=== PATIENT | male | born 1985 | race Caucasian/White ===

== ENCOUNTER 2018-10-02 12:00 | Emergency (ER) | payer OTHER, MEDICAID ==
[2018-10-02] MEDS ORDERED: NORMAL SALINE 1000 ML 1,000 ML IV ONE (12:22)
--- NOTE | 2018-10-02 12:24 | ER Document Report ---
ED Medical Screen (RME) - General Chief Complaint: ETOH Abuse Stated Complaint: DETOX Time Seen by Provider: 10/02/18 12:22 Mode of Arrival: Ambulatory Information source: Patient Notes: Patient presents requesting detox from alcohol use. Patient states he has been on a 3-day smith. Patient states he just drink 30 ounces of alcohol 10 minutes prior to arrival. Patient denies any suicidal or homicidal ideation. Patient denies any use of drugs. I have greeted and performed a rapid initial assessment of this patient. A comprehensive ED assessment and evaluation of the patient, analysis of test results and completion of the medical decision making process will be conducted by additional ED providers. TRAVEL OUTSIDE OF THE [place] IN LAST 30 DAYS: No - Related Data Allergies/Adverse Reactions: No Known Allergies Allergy (Verified 10/02/18 12:02) Physical Exam - Vital signs Vitals: Temp Pulse Resp BP Pulse Ox 98.0 F 124 H 16 137/101 H 94 10/02/18 12:09 10/02/18 12:09 10/02/18 12:10/02/18 12:09 10/02/18 12:09 - General General appearance: Appears well, Alert Notes: Smells of alcohol with slurred speech, no homicidal or suicidal ideation Course - Vital Signs Vital signs: Temp Pulse Resp BP Pulse Ox 98.0 F 124 H 16 137/101 H 94 10/02/18 12:09 10/02/18 12:09 10/02/18 12:10/02/18 12:10/02/18 12:09
[2018-10-02 12:55] LABS: ABSOLUTE BASOPHILS # (AUTO) 0.1 10^3/uL (0.0-0.2); ABSOLUTE EOSINOPHILS # (AUTO) 0.1 10^3/uL (0.0-0.6); ABSOLUTE LYMPHOCYTES (AUTO) 2.3 10^3/uL (0.5-4.7); ABSOLUTE MONOCYTES (AUTO) 0.6 10^3/uL (0.1-1.4); ABSOLUTE NEUT (AUTO) 2.5 10^3/uL (1.7-8.2); BASOPHILS % (AUTO) 1.2 % (0-2); EOSINOPHILS % (AUTO) 1.4 % (0-6); HEMATOCRIT 49.3 % (37.9-51.0); HEMOGLOBIN 17.3 g/dL (13.5-17.0); LYMPHOCYTES % (AUTO) 40.9 % (13-45); MEAN CORPUSCULAR HEMOGLOBIN 33.8 pg (27.0-33.4); MEAN CORPUSCULAR VOLUME 97 fl (80-97); MONOCYTES % (AUTO) 11.5 % (3-13); PLATELET COUNT 293 10^3/uL (150-450); RED BLOOD COUNT 5.11 10^6/uL (4.35-5.55); RED CELL DISTRIBUTION WIDTH 12.9 % (11.5-14.0); TOTAL CELLS COUNTED % (AUTO) 100 %; WHITE BLOOD COUNT 5.6 10^3/uL (4.0-10.5)
[2018-10-02 13:18] LABS: ALANINE AMINOTRANSFERASE 51 U/L (21-72); ALBUMIN 4.9 g/dL (3.5-5.0); ALKALINE PHOSPHATASE 106 U/L (38-126); ANION GAP 14 (5-19); ASPARTATE AMINO TRANSFERASE 80 U/L (17-59); BILIRUBIN,DIRECT 0.4 mg/dL (0.0-0.4); BILIRUBIN,TOTAL 0.6 mg/dL (0.2-1.3); BLOOD UREA NITROGEN 11 mg/dL (7-20); CALCIUM 9.3 mg/dL (8.4-10.2); CARBON DIOXIDE 29 mmol/L (22-30); CHLORIDE 100 mmol/L (98-107); GLUCOSE 109 mg/dL (75-110); POTASSIUM 4.7 mmol/L (3.6-5.0); SODIUM 142.7 mmol/L (137-145); TOTAL PROTEIN 8.8 g/dL (6.3-8.2)
[2018-10-02 13:22] LABS: URINE AMPHETAMINES SCREEN NEGATIVE; URINE BARBITURATES SCREEN NEGATIVE; URINE BENZODIAZEPINES SCREEN NEGATIVE; URINE COCAINE SCREEN NEGATIVE; URINE MARIJUANA (THC) SCREEN NEGATIVE; URINE METHADONE SCREEN NEGATIVE; URINE PHENCYCLIDINE SCREEN NEGATIVE
[2018-10-02 13:28] LABS: COLOR,URINE YELLOW
[2018-10-02 13:29] LABS: APPEARANCE,URINE CLEAR; BILIRUBIN,URINE NEGATIVE (NEGATIVE); GLUCOSE, URINE NEGATIVE (NEGATIVE); KETONES,URINE NEGATIVE (NEGATIVE); LEUKOCYTE ESTERASE,URINE NEGATIVE (NEGATIVE); NITRITE,URINE NEGATIVE (NEGATIVE); PROTEIN,URINE 100 mg/dL (NEGATIVE); URINE SPECIFIC GRAVITY 1.017; UROBILINOGEN,URINE NEGATIVE mg/dL (<2.0)
--- NOTE | 2018-10-02 13:36 | ER Document Report ---
ED General - General Chief Complaint: ETOH Abuse Stated Complaint: DETOX Time Seen by Provider: 10/02/18 12:22 Mode of Arrival: Ambulatory TRAVEL OUTSIDE OF THE [place] IN LAST 30 DAYS: No - HPI Notes: Patient is a 33-year-old male that presents to the emergency department for chief complaint of wanting alcohol detox. Patient states that he has had 3/5 of alcohol in the last 3 days. He reports that he usually drinks less than that but does drink daily. He states he came to the emergency room hoping to get alcohol detox. Patient has had detox in the past. He has no history of alcohol withdrawal seizures or delirium tremens. He has no current complaints other than wanting detox. He states that his last drink of alcohol was about 40 minutes ago. Patient denies any chest pain, shortness of breath, palpitations, nausea or vomiting. He denies any suicidal or homicidal ideations. Past Medical History: Alcoholism, PTSD, depression Past Surgical History: Negative Social History: Alcoholism. Denies tobacco or drug use Family History: Reviewed and noncontributory for presenting illness Allergies: Reviewed, see documented allergy list. REVIEW OF SYSTEMS: CONSTITUTIONAL : No fever No chills No diaphoresis No recent illness EENT: No vision changes No congestion No sore throat CARDIOVASCULAR: No chest pain No palpitations RESPIRATORY: No shortness of breath No cough No difficulty breathing GASTROINTESTINAL: No abdominal pain No nausea No vomiting No diarrhea GENITOURINARY: No dysuria No hematuria No difficulty urinating MUSCULOSKELETAL: No back pain No leg pain No arm pain SKIN: No rashes No lesions LYMPHATIC: No swollen, enlarged glands. NEUROLOGICAL: No lightheadedness No headache No weakness No paresthesias PSYCHIATRIC: No anxiety No depression PHYSICAL EXAMINATION: Vital signs reviewed, nursing noted reviewed. GENERAL: Appears mildly intoxicated, well-nourished and in no acute distress. HEAD: Atraumatic, normocephalic. EYES: Eyes appear normal, extraocular movements intact, sclera anicteric, conjunctiva are normal. ENT: nares patent, oropharynx clear without exudates. Moist mucous membranes. NECK: Normal range of motion, supple without lymphadenopathy LUNGS: Breath sounds clear to auscultation bilaterally and equal. No wheezes rales or rhonchi. HEART: Tachycardic rate and regular and rhythm without murmurs ABDOMEN: Soft, nontender, normoactive bowel sounds. No rebound, guarding, or rigidity. No masses appreciated. EXTREMITIES: Nontender, good range of motion, no pitting or edema. NEUROLOGICAL: No focal neurological deficits. Moves all extremities spontaneously Motor and sensory grossly intact on exam. PSYCH: Normal mood, normal affect. SKIN: Warm, Dry, normal turgor, no rashes or lesions noted on exposed skin - Related Data Allergies/Adverse Reactions: No Known Allergies Allergy (Verified 10/02/18 12:02) Past Medical History - General Information source: Patient - Social History Smoking Status: Current Every Day Smoker Frequency of alcohol use: Heavy Drug Abuse: None Family History: Reviewed & Not Pertinent Patient has suicidal ideation: No Patient has homicidal ideation: No Renal/ Medical History: Denies: Hx Peritoneal Dialysis Past Surgical History: Reports: Hx Abdominal Surgery - hernia x2 Physical Exam - Vital signs Vitals: Temp Pulse Resp BP Pulse Ox 98.0 F 124 H 16 137/101 H 94 10/02/18 12:09 10/02/18 12:09 10/02/18 12:09 10/02/18 12:10/02/18 12:09 Course - Re-evaluation Re-evalutation: 10/02/18 13:34 Vitals reviewed. Nursing notes reviewed. Patient is mildly intoxicated but is able to speak in full sentences without slurring and can ambulate without difficulty. His last alcoholic beverage was 40 minutes prior to arrival. Patient is otherwise asymptomatic. He was tachycardic in triage and ordered 1 L of IV fluids. He is not having any active hallucinations and is not in alcohol withdrawal. Patient was given the phone number to mobile crisis and will call them upon being discharged from the ED. He will return to the emergency room for new or worsening symptoms. He is in agreement with this plan of care and stable for discharge With his friend who is currently sober at bedside. Laboratory 10/02/18 10/02/18 10/02/18 12:30 12:30 12:38 WBC 5.6 RBC 5.11 Hgb 17.3 H Hct 49.3 MCV 97 MCH 33.8 H MCHC 35.0 RDW 12.9 Plt Count 293 Seg Neutrophils % 45.0 Lymphocytes % 40.9 Monocytes % 11.5 Eosinophils % 1.4 Basophils % 1.2 Absolute Neutrophils 2.5 Absolute Lymphocytes 2.3 Absolute Monocytes 0.6 Absolute Eosinophils 0.1 Absolute Basophils 0.1 Sodium Potassium Chloride Carbon Dioxide Anion Gap BUN Creatinine Est GFR ( Amer) Est GFR (Non-Af Amer) Glucose Calcium Total Bilirubin Direct Bilirubin Neonat Total Bilirubin Neonat Direct Bilirubin Neonat Indirect Bili AST ALT Alkaline Phosphatase Total Protein Albumin Urine Color YELLOW Urine Appearance CLEAR Urine pH 6.0 Ur Specific [place] 1.017 Urine Protein 100 H Urine Glucose (UA) NEGATIVE Urine Ketones NEGATIVE Urine Blood NEGATIVE Urine Nitrite NEGATIVE Urine Bilirubin NEGATIVE Urine Urobilinogen NEGATIVE Ur Leukocyte Esterase NEGATIVE Urine WBC (Auto) 1 Urine RBC (Auto) 1 U Hyaline Cast (Auto) 9 Urine Bacteria (Auto) TRACE Squamous Epi Cells Auto <1 Urine Mucus (Auto) OCC Urine Ascorbic Acid NEGATIVE Urine Opiates Screen NEGATIVE Urine Methadone Screen NEGATIVE Ur Barbiturates Screen NEGATIVE Ur Phencyclidine Scrn NEGATIVE Ur Amphetamines Screen NEGATIVE U Benzodiazepines Scrn NEGATIVE Urine Cocaine Screen NEGATIVE U Marijuana (THC) Screen NEGATIVE 10/02/18 12:38 WBC RBC Hgb Hct MCV MCH MCHC RDW Plt Count Seg Neutrophils % Lymphocytes % Monocytes % Eosinophils % Basophils % Absolute Neutrophils Absolute Lymphocytes Absolute Monocytes Absolute Eosinophils Absolute Basophils Sodium 142.7 Potassium 4.7 Chloride 100 Carbon Dioxide 29 Anion Gap 14 BUN 11 Creatinine 0.88 Est GFR ( Amer) > 60 Est GFR (Non-Af Amer) > 60 Glucose 109 Calcium 9.3 Total Bilirubin 0.6 Direct Bilirubin 0.4 Neonat Total Bilirubin Not Reportable Neonat Direct Bilirubin Not Reportable Neonat Indirect Bili Not Reportable AST 80 H ALT 51 Alkaline Phosphatase 106 Total Protein 8.8 H Albumin 4.9 Urine Color Urine Appearance Urine pH Ur Specific [place] Urine Protein Urine Glucose (UA) Urine Ketones Urine Blood Urine Nitrite Urine Bilirubin Urine Urobilinogen Ur Leukocyte Esterase Urine WBC (Auto) Urine RBC (Auto) U Hyaline Cast (Auto) Urine Bacteria (Auto) Squamous Epi Cells Auto Urine Mucus (Auto) Urine Ascorbic Acid Urine Opiates Screen Urine Methadone Screen Ur Barbiturates Screen Ur Phencyclidine Scrn Ur Amphetamines Screen U Benzodiazepines Scrn Urine Cocaine Screen U Marijuana (THC) Screen - Vital Signs Vital signs: Temp Pulse Resp BP Pulse Ox 98.0 F 124 H 16 137/101 H 94 10/02/18 12:09 10/02/18 12:09 10/02/18 12:09 10/02/18 12:10/02/18 12:09 - Laboratory Result Diagrams: 10/02/18 12:38 10/02/18 12:38 Laboratory results interpreted by me: 10/02/18 10/02/18 10/02/18 12:30 12:38 12:38 Hgb 17.3 H MCH 33.8 H AST 80 H Total Protein 8.8 H Urine Protein 100 H - EKG Interpretation by Me Additional EKG results interpreted by me: 10/02/18 13:35 Interpreted by myself [id number] tachycardia, rate 107, normal axis, no ectopy, no STEMI Discharge - Discharge Clinical Impression: Alcohol abuse Condition: Stable Disposition: HOME, SELF-CARE Instructions: Chronic Alcoholism ([facility]), Acute Alcohol Intoxication ([facility]) Additional Instructions: Please return to the emergency department if you have any worsening, or concern of your symptoms. Please return to the emergency department if you develop chest pain, difficulty breathing, severe abdominal pain, or ongoing vomiting. Please follow-up with your primary care physician in 2-3 days and any other recommended physicians. If prescribed, take all medications as directed. If you have any questions or concerns do not hesitate to return the emergency department for evaluation. Contact mobile crisis now to help you arrange alcohol detox
[2018-10-02 13:49] VITALS: BP 132/97
--- NOTE | 2018-10-02 21:24 | EKG REPORT ---
SEVERITY:- OTHERWISE NORMAL ECG - SINUS TACHYCARDIA : Confirmed by: Chanelle Jones MD 02-Oct-2018 21:24:02
== END 2018-10-02 13:49 | disposition home or self-care (01) ==
LOC: ER 12:00
DX: F10.10 Alcohol abuse, uncomplicated (principal); F17.200 Nicotine dependence, unspecified, uncomplicated
CPT/HCPCS: 93005; 99285; 96360; 36415; 85025; 80053; 81001; 80307; 93010; J7030

== ENCOUNTER 2018-10-02 17:22 | Emergency (ER) | payer OTHER, MEDICAID ==
--- NOTE | 2018-10-02 17:45 | ER Document Report ---
ED Medical Screen (RME) - General Chief Complaint: Suicidal Ideation Stated Complaint: SI Time Seen by Provider: 10/02/18 17:43 Primary Care Provider: KARISSA CAPUTO DO [Primary Care Provider] - Follow up as needed Information source: Patient Notes: Patient was seen earlier today with a request for detox from alcohol. Patient had drank just 10 minutes prior to his earlier ER visit. Patient states that since he was not able to get detoxed he went home and drink additional alcohol. Patient presents now with a complaint of suicidal ideation. Patient denies any homicidal ideation. I have greeted and performed a rapid initial assessment of this patient. A comprehensive ED assessment and evaluation of the patient, analysis of test results and completion of the medical decision making process will be conducted by additional ED providers. TRAVEL OUTSIDE OF THE [place] IN LAST 30 DAYS: No - Related Data Allergies/Adverse Reactions: No Known Allergies Allergy (Verified 10/02/18 17:28) Past Medical History Renal/ Medical History: Denies: Hx Peritoneal Dialysis Past Surgical History: Reports: Hx Abdominal Surgery - hernia x2 Physical Exam - Vital signs Vitals: Temp Pulse Resp BP Pulse Ox 97.9 F 104 H 16 130/104 H 97 10/02/18 17:38 10/02/18 17:38 10/02/18 17:38 10/02/18 17:38 10/02/18 17:38 - General General appearance: Appears well, Alert Notes: Slightly slurred speech - Psychological Associated symptoms: Normal affect, Normal mood. No: Uncooperative Course - Vital Signs Vital signs: Temp Pulse Resp BP Pulse Ox 97.9 F 104 H 16 130/104 H 97 10/02/18 17:38 10/02/18 17:38 10/02/18 17:38 10/02/18 17:38 10/02/18 17:38 Doctor's Discharge - Discharge Referrals: KARISSA CAPUTO DO [Primary Care Provider] - Follow up as needed
[2018-10-02 18:58] LABS: APPEARANCE,URINE CLEAR; BILIRUBIN,URINE NEGATIVE (NEGATIVE); COLOR,URINE STRAW; GLUCOSE, URINE NEGATIVE (NEGATIVE); KETONES,URINE NEGATIVE (NEGATIVE); LEUKOCYTE ESTERASE,URINE NEGATIVE (NEGATIVE); NITRITE,URINE NEGATIVE (NEGATIVE); PROTEIN,URINE NEGATIVE (NEGATIVE); URINE SPECIFIC GRAVITY 1.005; UROBILINOGEN,URINE NEGATIVE mg/dL (<2.0)
[2018-10-02 19:15] LABS: URINE AMPHETAMINES SCREEN NEGATIVE; URINE BARBITURATES SCREEN NEGATIVE; URINE BENZODIAZEPINES SCREEN NEGATIVE; URINE COCAINE SCREEN NEGATIVE; URINE MARIJUANA (THC) SCREEN NEGATIVE; URINE METHADONE SCREEN NEGATIVE; URINE PHENCYCLIDINE SCREEN NEGATIVE
[2018-10-02 19:35] LABS: HEMATOCRIT 44.6 % (37.9-51.0); HEMOGLOBIN 15.5 g/dL (13.5-17.0); MEAN CORPUSCULAR HEMOGLOBIN 33.5 pg (27.0-33.4); MEAN CORPUSCULAR HGB CONC 34.7 g/dL (32.0-36.0); MEAN CORPUSCULAR VOLUME 97 fl (80-97); PLATELET COUNT 244 10^3/uL (150-450); RED BLOOD COUNT 4.63 10^6/uL (4.35-5.55); RED CELL DISTRIBUTION WIDTH 12.7 % (11.5-14.0); WHITE BLOOD COUNT 6.3 10^3/uL (4.0-10.5)
[2018-10-02 19:49] LABS: ALANINE AMINOTRANSFERASE 54 U/L (21-72); ALBUMIN 4.3 g/dL (3.5-5.0); ALKALINE PHOSPHATASE 100 U/L (38-126); ANION GAP 12 (5-19); ASPARTATE AMINO TRANSFERASE 64 U/L (17-59); BILIRUBIN,DIRECT 0.3 mg/dL (0.0-0.4); BILIRUBIN,TOTAL 0.3 mg/dL (0.2-1.3); BLOOD UREA NITROGEN 8 mg/dL (7-20); CALCIUM 8.7 mg/dL (8.4-10.2); CARBON DIOXIDE 27 mmol/L (22-30); CHLORIDE 102 mmol/L (98-107); GLUCOSE 89 mg/dL (75-110); SODIUM 141.2 mmol/L (137-145); TOTAL PROTEIN 7.6 g/dL (6.3-8.2)
[2018-10-02 19:58] LABS: ACETAMINOPHEN < 10 ug/mL (10-30); SALICYLATE < 1.0 mg/dL (2.0-20.0)
[2018-10-02 19:59] LABS: ALCOHOL 354 mg/dL (NONE DETECTED)
[2018-10-02 20:00] LABS: ABSOLUTE LYMPHOCYTES# (MANUAL) 2.9 10^3/uL (0.5-4.7); ABSOLUTE MONOCYTES # (MANUAL) 0.3 10^3/uL (0.1-1.4); BASOPHILS % (MANUAL) 1 % (0-2); EOSINOPHILS % (MANUAL) 0 % (0-6); LYMPHOCYTES % (MANUAL) 46 % (13-45); MONOCYTES % (MANUAL) 5 % (3-13); RBC MORPHOLOGY COMMENT NORMO-CYTIC/CHROMIC; SEGMENTED NEUTROPHILS % (MAN) 48 % (42-78); TOTAL CELLS COUNTED 100
[2018-10-02 20:01] LABS: PLATELET COMMENT ADEQUATE
--- NOTE | 2018-10-02 22:28 | ER Document Report ---
Entered by DEMETRIUS SHORT SCRIBE 10/02/18 1858 Acting as scribe for:VANNESA MEIER MD ED General - General TRAVEL OUTSIDE OF THE U.S. IN LAST 30 DAYS: No <VANNESA MEIER - Last Filed: 10/03/18 04:05> <GARY RICO - Last Filed: 10/03/18 09:31> <MEEK LEE - Last Filed: 10/03/18 09:52> - General Chief Complaint: Suicidal Ideation Stated Complaint: SI Time Seen by Provider: 10/02/18 17:43 Primary Care Provider: [facility] [Provider Group] - Follow up as needed [facility] [Outside] - 10/03/18 [facility] [Outside] - Follow up as needed KARISSA CAPUTO DO [Primary Care Provider] - Follow up as needed Notes: Patient is a 33-year-old male presenting to the emergency department with suicid al ideations. Patient states that he had suicidal thoughts earlier today. Patient states that he has had these ideations for some time now, since 2011. Patient states that he almost some hung himself in 2016. Patient states that he lives with a roommate that is an old friend. Patient states that he just got a new job at the [employer], that he used to work at [employer] in [place]. Patient states that he went to see someone for his suicidal ideations and they said they would get back with him. (DEMETRIUS SHORT) Patient is a 33-year-old male presenting to the emergency department with suicidal ideations. Patient states that he had suicidal thoughts earlier today. Patient states that he has had these ideations for some time now, since 2011. Patient states that he almost some hung himself in 2016. Patient states that he lives with a roommate that is an old friend. Patient states that he just got a new job at the [employer], that he used to work at [employer] in [place]. The patient was seen here earlier today requesting detox. He was referred to mobile crisis. He reports he did call mobile crisis, and they told him the nearest detox facility was 2 and half hours away. He reports that they told him that they would call him back when they could make arrangements for him to get into a detox facility. He reports that they did have his phone number. After leaving the emergency room early this afternoon, he continued to drink alcohol. He states his last drink was about 2 hours prior to arrival this evening. (VANNESA EMIER) - Related Data Allergies/Adverse Reactions: No Known Allergies Allergy (Verified 10/02/18 17:28) Past Medical History - General Information source: Patient - Social History Smoking Status: Current Every Day Smoker Frequency of alcohol use: Heavy Drug Abuse: None Family History: Reviewed & Not Pertinent Patient has suicidal ideation: Yes Patient has homicidal ideation: No Renal/ Medical History: Denies: Hx Peritoneal Dialysis Past Surgical History: Reports: Hx Abdominal Surgery - hernia x2 <VANNESA MEIER - Last Filed: 10/03/18 04:05> Review of Systems - Review of Systems Constitutional: No symptoms reported EENT: No symptoms reported Cardiovascular: No symptoms reported Respiratory: No symptoms reported Gastrointestinal: No symptoms reported Genitourinary: No symptoms reported Male Genitourinary: No symptoms reported Musculoskeletal: No symptoms reported Skin: No symptoms reported Hematologic/Lymphatic: No symptoms reported Neurological/Psychological: See HPI, Depression, Suicidal ideation -: Yes All other systems reviewed and negative <VANNESA MEIER - Last Filed: 10/03/18 04:05> Physical Exam <VANNESA MEIER - Last Filed: 10/03/18 04:05> - Vital signs Vitals: Temp Pulse Resp BP Pulse Ox 97.9 F 104 H 16 130/104 H 97 10/02/18 17:38 10/02/18 17:38 10/02/18 17:38 10/02/18 17:38 10/02/18 17:38 - Notes Notes: Physical Exam: General: Alert, appears well, depressed, alcohol odor on the breath. HEENT: Left aspect of the upper lip, has a minor laceration, with scabbing occurring. Throat Erithmatic. Mouth dry. PERRL. Extraocular movements intact. Oropharynx clear. Neck: Supple. Non-tender. Respiratory: No respiratory distress. Clear and equal breath sounds bilaterally. Cardiovascular: Left anterior chest wall tenderness to palpation Regular rate and rhythm. Abdominal: Normal Inspection. Non-tender. No distension. Normal Bowel Sounds. Back: Non-tender. No deformity or step off. Extremities: Moves all four extremities. Upper extremities: Normal inspection. Normal ROM. Lower extremities: Normal inspection. No edema. Normal ROM. Neurological: Normal cognition. AAOx4. Normal speech. Psychological: Normal affect. Normal Mood. Skin: Warm. Dry. Normal color. She filled the prescription but if she would like the left aspect of the upper lip (DEMETRIUS SHORT) Physical Exam: General: Alert, appears well, depressed, alcohol odor on the breath. HEENT: Left aspect of the upper lip, has a minor laceration, with scabbing occurring. Throat Erithmatic. Mouth dry. PERRL. Extraocular movements intact. Oropharynx clear. Neck: Supple. Non-tender. Respiratory: No respiratory distress. Clear and equal breath sounds bilaterally. Cardiovascular: Left anterior chest wall tenderness to palpation Regular rate and rhythm. Abdominal: Normal Inspection. Non-tender. No distension. Normal Bowel Sounds. Back: Non-tender. No deformity or step off. Extremities: Moves all four extremities. Upper extremities: Normal inspection. Normal ROM. Lower extremities: Normal inspection. No edema. Normal ROM. Neurological: Normal cognition. AAOx4. Normal speech. Psychological: Normal affect. Normal Mood. Skin: Warm. Dry. Normal color. She filled the prescription but if she would like the left aspect of the upper lip (VANNESA MEIER) Course - Laboratory Result Diagrams: 10/02/18 19:20 10/02/18 19:20 <VANNESA MEIER - Last Filed: 10/03/18 04:05> - Laboratory Result Diagrams: 10/02/18 19:20 10/02/18 19:20 <GARY RICO - Last Filed: 10/03/18 09:31> - Laboratory Result Diagrams: 10/02/18 19:20 10/02/18 19:20 <MEEK LEE - Last Filed: 10/03/18 09:52> - Re-evaluation Re-evalutation: 10/03/18 04:05 Patient's alcohol level was 354. He is sitting up completely alert and oriented and does not appear particularly intoxicated. (VANNESA MEIER) - Vital Signs Vital signs: Temp Pulse Resp BP Pulse Ox 97.8 F 109 H 20 116/87 H 94 10/03/18 03:25 10/03/18 03:25 10/03/18 03:25 10/03/18 03:25 10/03/18 03:25 - Laboratory Laboratory results interpreted by me: 10/02/18 10/02/18 19:20 19:20 MCH 33.5 H Lymphocytes % (Manual) 46 H AST 64 H Salicylates < 1.0 L Acetaminophen < 10 L Serum Alcohol 354 H* Discharge <VANNESA MEIER - Last Filed: 10/03/18 04:05> <GARY RICO - Last Filed: 10/03/18 09:31> <MEEK LEE - Last Filed: 10/03/18 09:52> - Discharge Clinical Impression: Chronic alcoholism, Suicidal ideation Acute alcohol intoxication Qualifiers: Complication of substance-induced condition: uncomplicated Qualified Code(s): F10.920 - Alcohol use, unspecified with intoxication, uncomplicated Depression Qualifiers: Depression Type: unspecified Qualified Code(s): F32.9 - Major depressive disorder, single episode, unspecified Condition: Stable Disposition: HOME, SELF-CARE Additional Instructions: You have been evaluated by both medical and behavioral health providers while in the emergency department. You have been cleared from both acute medical and psychiatric services. You are being linked back up with [facility] for voluntary alcohol detoxification/treatment. Acute Alcohol Intoxication Your evaluation revealed very high levels of alcohol. You can from drin randell a large amount of alcohol rapidly! Further, there's the risk of falls, traffic accidents, and fights. A high portion (about 50 percent) of the serious injuries seen in hospital emergency rooms are caused by alcohol. Alcohol overdosage is usually due to an underlying emotional or psychiatric problem. You may benefit from counselling. If "binge" drinking is an ongoing problem for you, or if you drink ANY AMOUNT of alcohol EVERY day, you most likely have a tendency to alcoholism. You should avoid alcohol totally. We can refer you for treatment. Persons with alcohol problems are often also prone to other addictions -- you should discuss any use of medications or drugs with the doctor. You should be watched at home for the next several hours by someone who has not been drinking. Get extra fluids for the next 24 hours. Call the doctor if there is repeated vomiting, increasing headache, decreasing level of alertness, or any other worsening. CHRONIC ALCOHOLISM and ALCOHOL ABUSE: (still a consideration with frequent binge drinking) Your evaluation reveals evidence of chronic alcoholism, an addiction to alcohol. The tendency to alcoholism may be inherited. Chronic use of alcohol weakens muscles, causes fatty deposits in the liver, damages the stomach, makes you more prone to infections, and can cause defects in unborn children. In the long run, brain atrophy and cirrhosis of the liver result. You are also at greater risk for certain types of cancer, such as cancer of the mouth, throat, stomach, and liver. Counselling services are available to help you. In-hospital treatment programs often help. Support groups such as Alcoholics Anonymous can be very useful in beating this addiction. Your physician can make a referral for you. As alcoholics often are prone to other addictions, you should discuss your use of any other medications with the doctor. ALCOHOL WITHDRAWAL: (concern for this as you continue to sober up) Your symptoms are caused by alcohol withdrawal. After a period of frequent drinking, the brain and body are changed by the alcohol. When you quit or reduce your drinking, the nervous system becomes unstable. Withdrawal symptoms can start a few hours after your last drink, but sometimes don't begin until a couple of days later. Symptoms can include shakiness, sweating, insomnia, nausea, vomiting, fearfulness, hallucinations, and seizures. In addition to the acute effects of alcohol withdrawal, we often have to deal with the medical effects of alcoholism. These problems often include dehydration, stomach irritation, intestinal bleeding, low blood sugar, liver disease, and pancreas inflammation. Treatment for alcohol withdrawal includes mild sedatives, vitamins, and fluids. You need to be with someone who can help if symptoms become severe. Many patients can withdraw at home. Admission to the hospital or a detox facility may be necessary if withdrawal symptoms are severe and uncontrollable. Abstaining from alcohol is the only effective long-term treatment. If you start drinking again, you will not be able to control yourself after the first drink. Treatment programs are available. In addition, many alcoholics benefit from Alcoholics Anonymous or other support groups available through your counselor or jain asbestos siding installer. AL-ANON and CARI-TEEN are support groups for friends and family members of an alcoholic. Go to the emergency room if you develop persistent vomiting, severe abdominal pain, fever, shortness of breath, hallucinations, uncontrollable tremors, or seizures. DEPRESSION: Your evaluation reveals that you have mental depression. While symptoms may be vague, they often include disturbance of sleep, fatigue, loss of appetite, and general loss of interest in life. While depression may be a side effect of drugs, or a reaction to a major change in your life, many cases have no known cause. If depression is acute, and related to a major loss in your life, you can expect it to clear completely with time. If you have been depressed a long time, are prone to repeated bouts of depression or low mood, or have been thinking of suicide, get help. Depression can be treated with anti-depressant medication and counselling. Long-term depression will often take a few weeks to clear, even with appropriate medication. Follow-up care is important. SUICIDAL IDEATION: Suicidal ideation is a common medical term for thoughts about suicide, which may be as detailed as a formulated plan, without the suicidal act itself. Although most people who undergo suicidal ideation do not commit suicide, some go on to make suicide attempts. The range of suicidal ideation varies greatly from fleeting to detailed planning, role playing, and unsuccessful attempts. While thoughts about suicide are common, most people do not carry out serious actions to commit suicide. Based upon your evaluation and discussion with you, we do not believe you are currently at risk to act upon your thoughts of suicide. You have agreed to return to the Emergency Department, at any time, if you feel inclined to act upon your suicidal thoughts. FOLLOW-UP CARE: [facility] will meet you in the emergency department lobby at discharge for voluntary alcohol detoxification/treatment. If you experience worsening or a significant change in your symptoms, notify the physician immediately or return to the Emergency Department at any time for re- evaluation. Referrals: KARISSA CAPUTO DO [Primary Care Provider] - Follow up as needed [facility] [Outside] - Follow up as needed [facility] [Provider Group] - Follow up as needed [facility] [Outside] - 10/03/18 Scribe Attestation: 10/03/18 03:48 I personally performed the services described in the documentation, reviewed and edited the documentation which was dictated to the scribe in my presence, and it accurately records my words and actions. (VANNESA MEIER) I personally performed the services described in the documentation, reviewed and edited the documentation which was dictated to the scribe in my presence, and it accurately records my words and actions.
--- NOTE | 2018-10-03 08:52 | PSYCHOLOGICAL NOTE ---
Psych Note - Psych Note Date seen by psych provider: 10/03/18 Time seen by psych provider: 07:39 - Chart review at 0739. Evaluation from [id number]. [facility] contact at 0817. Coordinating care with local [place] at 0945. [facility] Collateral from [id number]. Psych Note: Presenting Problem: SI, Alcohol intoxication, Serum Alcohol Level was 354 upon arrival to the ED. He was seen by medical yesterday (10/02/18) at about 1230 for alcohol detox, treating ED Physician coordinated with this Behavioral Health Clinician and resources provided with recommendation for [facility] involvement for voluntary detox. Patient reported he did contact [facility], they came to the house and they referred him back to the ED due to SI. Medical documentation noted patient said this was the best way for him to detox and yes he was using the healthcare system to cheat. With further questioning by medical staff about SI he first chuckled said yes then I don't know to if he had a plan, then said hanging is his preferred method, when asked where he said anywhere and when asked how he said he would use a rope/cord/something. Today he denied SI. He admitted to binge drinking regularly where he drinks lots of Whiskey or a case of beer, had been trying to stay away from the Whiskey but that was what he last had. He admitted to previous detox, denied having seizures with withdrawal or any seizure Hx. Patient alert and oriented x5, denied current SI and had time to sober up. Observed some shakiness in hands but not constant. Spoke to Hortencia, from the local [place] [facility]. She stated patient is involved with [facility], infrequently, but is. She identified there is documentation that patient called the SI Hotline last night (10/02/18) saying he was intoxicated and had been binge drinking for 3 days, had been to 2 previous detoxes with 1 week inpatient and no follow up. He had noted the following withdrawal symptoms in the past: shaking, nausea and vomiting. Also includes was that he denied SI at the time, admitted to a previous hanging attempt 3 years ago that his cousin stopped, noted Hx of PTSD with dreams/night terrors which have ruined many relationships, and he had not seen his daughter in 3 years. Hortencia noted patient is prescribed Zoloft 100MG QD. Contacted [facility] call center, spoke to Faith, was trying to confirm if he reached out, she said she would look into it and see of there was a release of information, otherwise to have patient call her back if referring back. Spoke to Lesley with [facility]. She identified she was the one who interacted with patient yesterday around 1400. He denied SI to her, admitted to SI issues while in the [place] from [id number], previous hospitalization in [place] twice, lots of detoxes in past but not in [place], wanted alcohol detox last night, but there were no beds available last night. She stated today all [facility] [place] locations are full, [facility] said they might have a discharge and she would be doing a [facility] referral. [facility] provided necessary information for [facility] referral, as well as direct contact to Hortencia at local [place] [facility] for appointment scheduling. Diagnosis: 303.00 (F10.229) Alcohol Intoxication, With Severe Use Disorder 309.81 (F43.10) Post Traumatic Stress Disorder by Hx per [facility] Impression/Plan: Patient is cleared from acute psychiatric services. He denied current SI/HI and no observed psychosis. Last night he endorsed SI to medical and also said this was the best place for him to detox and yes he was using the healthcare system to cheat. He has had time to sober up. [facility] and [facility] for continuity of care. [facility] worker, Lesley getting paperwork for [facility] referral, provided her with [place] Nurse Hortencia direct contact number, provided transportation for patient and planning treatment. Provided patient with the outpatient MH resource sheet which highlighted [facility] and [facility], as well as documented [facility]. Consulted with Dr. Herron regarding the management and care of patient. ED Physician in agreement with recommendations.
--- NOTE | 2018-10-03 09:31 | ER Document Report ---
Doctor's Note Notes: 10/03/18 09:28 Rounds: Chart reviewed and patient interviewed. Patient says he is a binge drinking alcoholic. Says is been drinking for about 3 days this time. When he came in, his alcohol level was 354. Patient says he is a bit anxious. No other significant past medical history. Lab studies otherwise showed a white count of 6300 with 46% lymphs, questionable clinical significance? Vital signs are all normal. Patient appears to be medically stable for transfer or discharge. Jan David MD
[2018-10-03 11:08] VITALS: BP 153/98
== END 2018-10-03 11:16 | disposition home or self-care (01) ==
LOC: ER 17:22
DX: F10.229 Alcohol dependence with intoxication, unspecified (principal); F32.9 Major depressive disorder, single episode, unspecified; F17.200 Nicotine dependence, unspecified, uncomplicated
CPT/HCPCS: 36415; 80307; 81001; 87070; 99285

== ENCOUNTER 2018-11-03 00:38 | Emergency (ER) | payer OTHER, MEDICAID ==
[2018-11-03] MEDS ORDERED: LIDOCAINE 1% INJ (10 MG/ML) 10 ML MDV INJ ONE (00:46)
[2018-11-03 00:48] VITALS: BP 147/110
== END 2018-11-03 05:25 | disposition left against medical advice (07) ==
LOC: ER 00:38
DX: Z53.21 Procedure and treatment not carried out due to patient leaving prior to being seen by health care provider (principal)

== ENCOUNTER 2019-05-07 10:32 | Emergency (ER) | payer OTHER, MEDICAID ==
--- NOTE | 2019-05-07 11:01 | ER Document Report ---
ED Medical Screen (RME) - General Chief Complaint: ETOH Abuse Stated Complaint: ETOH Time Seen by Provider: 05/07/19 10:57 Primary Care Provider: KARISSA CAPUTO DO [Primary Care Provider] - Follow up as needed Mode of Arrival: Ambulatory Information source: Patient Notes: 33-year-old male with long history of EtOH abuse presents emergency department for help. He reports he went to [facility] and they sent him over here. Patient reports he drank 1/5 of whiskey prior to arrival. Denies drug abuse. No other complaints such as fever vomiting diarrhea. Denies suicidal or homicidal ideations. I have greeted and performed a rapid initial assessment of this patient. A comprehensive ED assessment and evaluation of the patient, analysis of test results and completion of the medical decision making process will be conducted by additional ED providers. TRAVEL OUTSIDE OF THE [place]. IN LAST 30 DAYS: No - Related Data Allergies/Adverse Reactions: No Known Allergies Allergy (Verified 10/02/18 17:28) Home Medications: pt can not remember. Past Medical History - Social History Frequency of alcohol use: Heavy Drug Abuse: None Renal/ Medical History: Denies: Hx Peritoneal Dialysis Past Surgical History: Reports: Hx Abdominal Surgery - hernia x2 Physical Exam - Vital signs Vitals: Temp Pulse Resp BP Pulse Ox 97.9 F 104 H 18 139/100 H 93 05/07/19 10:36 05/07/19 10:36 05/07/19 10:36 05/07/19 10:36 05/07/19 10:36 Course - Vital Signs Vital signs: Temp Pulse Resp BP Pulse Ox 97.9 F 104 H 18 139/100 H 93 05/07/19 10:36 05/07/19 10:36 05/07/19 10:36 05/07/19 10:36 05/07/19 10:36 Doctor's Discharge - Discharge Referrals: KARISSA CAPUTO DO [Primary Care Provider] - Follow up as needed
[2019-05-07 11:29] LABS: ABSOLUTE BASOPHILS # (AUTO) 0.1 10^3/uL (0.0-0.2); ABSOLUTE LYMPHOCYTES (AUTO) 1.2 10^3/uL (0.5-4.7); ABSOLUTE MONOCYTES (AUTO) 0.6 10^3/uL (0.1-1.4); ABSOLUTE NEUT (AUTO) 3.3 10^3/uL (1.7-8.2); BASOPHILS % (AUTO) 2.5 % (0-2); EOSINOPHILS % (AUTO) 0.1 % (0-6); HEMATOCRIT 49.7 % (37.9-51.0); HEMOGLOBIN 17.4 g/dL (13.5-17.0); LYMPHOCYTES % (AUTO) 22.9 % (13-45); MEAN CORPUSCULAR HEMOGLOBIN 34.2 pg (27.0-33.4); MEAN CORPUSCULAR HGB CONC 34.9 g/dL (32.0-36.0); MEAN CORPUSCULAR VOLUME 98 fl (80-97); MONOCYTES % (AUTO) 12.1 % (3-13); PLATELET COUNT 104 10^3/uL (150-450); RED BLOOD COUNT 5.08 10^6/uL (4.35-5.55); RED CELL DISTRIBUTION WIDTH 13.5 % (11.5-14.0); SEGMENTED NEUTROPHILS % (AUTO) 62.4 % (42-78); TOTAL CELLS COUNTED % (AUTO) 100 %; WHITE BLOOD COUNT 5.3 10^3/uL (4.0-10.5)
[2019-05-07 11:37] LABS: APPEARANCE,URINE CLEAR; BILIRUBIN,URINE NEGATIVE (NEGATIVE); COLOR,URINE AMBER; GLUCOSE, URINE NEGATIVE (NEGATIVE); KETONES,URINE 80 mg/dL (NEGATIVE); LEUKOCYTE ESTERASE,URINE NEGATIVE (NEGATIVE); NITRITE,URINE NEGATIVE (NEGATIVE); PROTEIN,URINE >=500 mg/dL (NEGATIVE); URINE SPECIFIC GRAVITY 1.026
[2019-05-07 11:50] LABS: ALBUMIN 4.6 g/dL (3.5-5.0); ALKALINE PHOSPHATASE 176 U/L (38-126); ASPARTATE AMINO TRANSFERASE 550 U/L (17-59); BILIRUBIN,DIRECT 0.6 mg/dL (0.0-0.4); BILIRUBIN,TOTAL 1.1 mg/dL (0.2-1.3); BLOOD UREA NITROGEN 16 mg/dL (7-20); CALCIUM 8.9 mg/dL (8.4-10.2); GLUCOSE 86 mg/dL (75-110); POTASSIUM 4.3 mmol/L (3.6-5.0)
[2019-05-07 11:51] LABS: URINE AMPHETAMINES SCREEN NEGATIVE; URINE BARBITURATES SCREEN NEGATIVE; URINE BENZODIAZEPINES SCREEN NEGATIVE; URINE COCAINE SCREEN NEGATIVE; URINE MARIJUANA (THC) SCREEN NEGATIVE; URINE METHADONE SCREEN NEGATIVE; URINE PHENCYCLIDINE SCREEN NEGATIVE
[2019-05-07 11:54] LABS: CARBON DIOXIDE 29 mmol/L (22-30); CHLORIDE 86 mmol/L (98-107)
[2019-05-07 12:06] LABS: ACETAMINOPHEN < 10 ug/mL (10-30); ANION GAP 22 (5-19)
[2019-05-07 12:11] LABS: ALCOHOL 389 mg/dL (NONE DETECTED)
[2019-05-07] MEDS ORDERED: NORMAL SALINE 1000 ML 1,000 ML with POTASSIUM CHLORIDE 20 MEQ, MAGNESIUM SULFATE 8 MEQ,... IV PRN ×10 (12:22→14:00)
[2019-05-07] MEDS ORDERED: NORMAL SALINE 1000 ML 1,000 ML IV ONE (12:22)
--- NOTE | 2019-05-07 13:57 | ER Document Report ---
ED General - General Chief Complaint: ETOH Abuse Stated Complaint: ETOH Time Seen by Provider: 05/07/19 10:57 Primary Care Provider: KARISSA CAPUTO DO [Primary Care Provider] - Follow up as needed Mode of Arrival: Ambulatory TRAVEL OUTSIDE OF THE [place] IN LAST 30 DAYS: No - HPI Notes: Patient is a 33-year-old gentleman with a history of depression, BPH, who presents the emergency department for evaluation. He went to [facility] to try and get help with alcohol dependence, they was sent him here. The patient states he is drank whiskey or beer daily for as long as he can remember. He states that a few months ago he was without alcohol for 5 to 6 days and had a seizure, but then he told me that he could not remember the last time he did not drink. The patient denies use of any other illicit drugs. Denies suicidal or homicidal ideation. He denies any visual or auditory hallucination. He admits he is not been taking any of his medications. He states he had a sandwich to eat this morning. He has no other acute complaints or concerns. - Related Data Allergies/Adverse Reactions: No Known Allergies Allergy (Verified 10/02/18 17:28) Home Medications: pt can not remember. Past Medical History - General Information source: Patient - Social History Smoking Status: Current Every Day Smoker Frequency of alcohol use: Heavy Drug Abuse: None Family History: Reviewed & Not Pertinent Patient has suicidal ideation: No Patient has homicidal ideation: No Renal/ Medical History: Reports: Hx Benign Prostatic Hyperplasia. Denies: Hx Peritoneal Dialysis Psychiatric Medical History: Reports: Hx Depression Past Surgical History: Reports: Hx Abdominal Surgery - hernia x2 Review of Systems - Review of Systems Neurological/Psychological: See HPI -: Yes All other systems reviewed and negative Physical Exam - Vital signs Vitals: Temp Pulse Resp BP Pulse Ox 97.9 F 104 H 18 139/100 H 93 05/07/19 10:36 05/07/19 10:36 05/07/19 10:36 05/07/19 10:36 05/07/19 10:36 - Notes Notes: This is a 33-year-old male who appears his stated age in no acute distress. He is lying comfortably in the bed. He has some facial abrasions, without surrounding signs of infection, noted in the glabellar region. Vital signs reviewed, please refer to chart. Head is normocephalic, atraumatic. Pupils equal round, reactive to light. Nares are patent without septal hematoma. No facial bone tenderness. Neck is supple without meningismus. Heart is regular rate and rhythm. Lungs are clear to auscultation bilaterally. Abdomen is soft, nontender, normoactive bowel sounds throughout. Extremities without cyanosis, clubbing. Posterior calves are nontender. Peripheral pulses are equal. Skin is warm and dry. Patient is awake, alert, oriented x3. Cranial nerves II - XII are grossly intact without focal neurological deficits. Strength is plus 5 out of 5 bilateral upper and lower extremities. Sensation is intact. Reflexes symmetrical. Intact [id number], rapid alternating movements, [id number]. Course - Re-evaluation Re-evalutation: 05/07/19 13:56 Patient presents to the emergency department for evaluation. He has been a longtime alcohol dependent patient. At this time he is not exhibiting any signs of alcohol withdrawal. His blood pressure is normal. His heart rate is normal. He has no fine tremors, no tactile or visual hallucinations. He is given a banana bag, IV fluids, food. Because he does not remember hitting his head and he has abrasions about his face, CT scan of the head was ordered. We will continue to monitor. 05/07/19 13:57 05/07/19 16:00 Patient remained stable. His current heart rate is in the 80s. His blood pressure is 125/83, normal respiratory rate. He is still not showing any signs of withdrawal. Patient will need to have a blood alcohol level of 200 or lower to be accepted to [facility]. Blood alcohol reordered for 9 PM tonight. We will co jam to monitor. 05/07/19 18:58 Patient reexamined. His heart rate is in the 90s, current systolic blood pressure in the 120s. He has no tremors. He did have some emesis earlier, he was given Zofran and this resolved. His skin is warm and dry, CT scan is unremarkable. At this point, blood will be redrawn at 2100. I expect that at this point his blood alcohol will be below 200. If he remains stable, the patient will be discharged to go to [facility], will be medically cleared for further treatment of alcohol dependence and abuse. - Vital Signs Vital signs: Temp Pulse Resp BP Pulse Ox 97.9 F 104 H 17 122/76 95 05/07/19 10:36 05/07/19 10:36 05/07/19 18:01 05/07/19 18:01 05/07/19 18:01 - Laboratory Result Diagrams: 05/07/19 11:09 05/07/19 11:09 Laboratory results interpreted by me: 05/07/19 05/07/19 05/07/19 11:09 11:09 11:09 Hgb 17.4 H MCV 98 H MCH 34.2 H Plt Count 104 L Baso % (Auto) 2.5 H Sodium 136.7 L Chloride 86 L Anion Gap 22 H Direct Bilirubin 0.6 H AST 550 H Alkaline Phosphatase 176 H Total Protein 9.0 H Urine Protein >=500 H Urine Ketones 80 H Urine Blood SMALL H Urine Urobilinogen 4.0 H Salicylates 1.0 L Acetaminophen < 10 L Serum Alcohol 389 H* - Diagnostic Test Radiology reviewed: Reports reviewed Radiology results interpreted by me: 05/07/19 18:[address] 05/07/19 13:51 IMPRESSION: NORMAL BRAIN CT WITHOUT CONTRAST. EVIDENCE OF ACUTE STROKE: NO. - EKG Interpretation by Me Additional EKG results interpreted by me: 05/07/19 18:57 Normal sinus rhythm at 91 bpm. Normal axis and intervals. No acute ST changes concerning for ischemia or infarction. Discharge - Discharge Clinical Impression: Alcohol dependence Condition: Stable Disposition: OTHER Instructions: Chronic Alcoholism ([facility]), Alcohol Withdrawl ([facility]) Additional Instructions: At this time you remain stable, and are medically cleared for further treatment at [facility] for alcohol detox. Return to the emergency department with worsening or new concerning symptoms of any sort. Referrals: KARISSA CAPUTO DO [Primary Care Provider] - Follow up as needed
--- NOTE | 2019-05-07 14:49 | RADIOLOGY REPORT (SQ) ---
EXAM DESCRIPTION: CT HEAD WITHOUT COMPLETED DATE/TIME: 05/07/2019 2:25 pm REASON FOR STUDY: alcoholic, head trauma COMPARISON: None. TECHNIQUE: Axial images acquired through the brain without intravenous contrast. Images reviewed wi th bone, brain and subdural windows. Additional sagittal and coronal reconstructions were generated. Images stored on PACS. All CT scanners at this facility use dose modulation, iterative reconstruction, and/or weight based d osing when appropriate to reduce radiation dose to as low as reasonably achievable (ALARA). [facility]: Dose Right [facility]: CareDose [facility]: Dose Right [facility]: Teradose 4D [facility]: Jobaline RADIATION DOSE: CT Rad equipment meets quality standard of care and radiation dose reduction techniq ues were employed. CTDIvol: 53.2 mGy. DLP: 1044 mGy-cm. mGy. LIMITATIONS: None. FINDINGS: VENTRICLES: Normal size and contour. CEREBRUM: No masses. No hemorrhage. No midline shift. No evidence for acute infarction. Normal gra y/white matter differentiation. No areas of low density in the white matter. CEREBELLUM: No masses. No hemorrhage. No alteration of density. No evidence for acute infarction. EXTRAAXIAL SPACES: No fluid collections. No masses. ORBITS AND GLOBE: No intra- or extraconal masses. Normal contour of globe without masses. CALVARIUM: No fracture. PARANASAL SINUSES: No fluid or mucosal thickening. SOFT TISSUES: No mass or hematoma. OTHER: No other significant finding. IMPRESSION: NORMAL BRAIN CT WITHOUT CONTRAST. EVIDENCE OF ACUTE STROKE: NO. COMMENT: Quality ID # [id number]: Final reports with documentation of one or more dose reduction techniques (e.g., Automated exposure control, adjustment of the mA and/or kV according to patient size, use of iterative reconstruction technique) TECHNICAL DOCUMENTATION: JOB ID: [id number] 2010 [employer] All Rights Reserved Reading location - IP/workstation name: [email or web address]
--- NOTE | 2019-05-07 17:12 | EKG REPORT ---
SEVERITY:- NORMAL ECG - SINUS RHYTHM : Confirmed by: Jovany Marion MD 07-May-2019 17:11:22
[2019-05-07] MEDS ORDERED: ONDANSETRON HCL INJ/PF 4 MG/2 ML SDV IV ONE (17:13)
[2019-05-08 00:49] VITALS: BP 112/78
== END 2019-05-08 00:53 | disposition other institution (70) ==
LOC: ER 10:32
DX: F10.20 Alcohol dependence, uncomplicated (principal); S00.81XA Abrasion of other part of head, initial encounter; X58.XXXA Exposure to other specified factors, initial encounter; R11.10 Vomiting, unspecified; F17.200 Nicotine dependence, unspecified, uncomplicated
CPT/HCPCS: 93005; 99284; 96360; 36415; 80307 ×4; 85025; 80053; 81001; 70450; 93010; J3475; J3480; J3411; J2405; J7030; J3490

== ENCOUNTER 2019-05-10 12:00 | Emergency (ER) | payer OTHER, MEDICAID ==
[2019-05-10 12:56] LABS: ALBUMIN 3.8 g/dL (3.5-5.0); ALKALINE PHOSPHATASE 116 U/L (38-126); ANION GAP 16 (5-19); ASPARTATE AMINO TRANSFERASE 181 U/L (17-59); BILIRUBIN,DIRECT 0.3 mg/dL (0.0-0.4); BILIRUBIN,TOTAL 1.3 mg/dL (0.2-1.3); BLOOD UREA NITROGEN 12 mg/dL (7-20); CALCIUM 9.8 mg/dL (8.4-10.2); CARBON DIOXIDE 25 mmol/L (22-30); CHLORIDE 95 mmol/L (98-107); GLUCOSE 100 mg/dL (75-110); TOTAL PROTEIN 7.6 g/dL (6.3-8.2)
[2019-05-10 12:57] LABS: ALCOHOL < 10 mg/dL (NONE DETECTED)
[2019-05-10 12:59] LABS: ABSOLUTE LYMPHOCYTES (AUTO) 1.1 10^3/uL (0.5-4.7); ABSOLUTE MONOCYTES (AUTO) 0.9 10^3/uL (0.1-1.4); ABSOLUTE NEUT (AUTO) 2.2 10^3/uL (1.7-8.2); BASOPHILS % (AUTO) 1.1 % (0-2); EOSINOPHILS % (AUTO) 1.1 % (0-6); HEMATOCRIT 42.4 % (37.9-51.0); HEMOGLOBIN 14.6 g/dL (13.5-17.0); LYMPHOCYTES % (AUTO) 26.5 % (13-45); MEAN CORPUSCULAR HEMOGLOBIN 34.2 pg (27.0-33.4); MEAN CORPUSCULAR HGB CONC 34.4 g/dL (32.0-36.0); MEAN CORPUSCULAR VOLUME 99 fl (80-97); MONOCYTES % (AUTO) 19.7 % (3-13); PLATELET COUNT 104 10^3/uL (150-450); RED BLOOD COUNT 4.27 10^6/uL (4.35-5.55); RED CELL DISTRIBUTION WIDTH 12.9 % (11.5-14.0); SEGMENTED NEUTROPHILS % (AUTO) 51.6 % (42-78); TOTAL CELLS COUNTED % (AUTO) 100 %; WHITE BLOOD COUNT 4.3 10^3/uL (4.0-10.5)
--- NOTE | 2019-05-10 12:59 | EKG REPORT ---
SEVERITY:- NORMAL ECG - SINUS RHYTHM : Confirmed by: Jovany Marion MD 10-May-2019 12:58:34
[2019-05-10 13:39] LABS: APPEARANCE,URINE SLIGHTLY-CLOUDY; BILIRUBIN,URINE NEGATIVE (NEGATIVE); COLOR,URINE DARK YELLOW; GLUCOSE, URINE NEGATIVE (NEGATIVE); KETONES,URINE TRACE mg/dL (NEGATIVE); LEUKOCYTE ESTERASE,URINE NEGATIVE (NEGATIVE); NITRITE,URINE NEGATIVE (NEGATIVE); PROTEIN,URINE 100 mg/dL (NEGATIVE); URINE SPECIFIC GRAVITY 1.021
[2019-05-10 13:54] LABS: URINE AMPHETAMINES SCREEN NEGATIVE; URINE BARBITURATES SCREEN NEGATIVE; URINE BENZODIAZEPINES SCREEN NEGATIVE; URINE COCAINE SCREEN NEGATIVE; URINE MARIJUANA (THC) SCREEN NEGATIVE; URINE METHADONE SCREEN NEGATIVE; URINE PHENCYCLIDINE SCREEN NEGATIVE
[2019-05-10] MEDS ORDERED: HYDROXYZINE PAMOATE 50 MG CAPSULE PO ONE (16:19)
--- NOTE | 2019-05-10 16:38 | ER Document Report ---
ED Seizure - General Chief Complaint: Seizure Stated Complaint: POSSIBLE SEIZURE Time Seen by Provider: 05/10/19 15:50 Primary Care Provider: [facility] [Provider Group] - Follow up in 3-5 days Notes: Patient is a 33-year-old male who presents to the emergency department with a chief complaint of possible seizure. He was discharged from [facility] facility for alcohol abuse. He was walking home and ended up having a possible seizure. Patient states that he only has a mild headache, but denies any pain anywhere else. Patient's last drink was 3 days ago. - Related Data Allergies/Adverse Reactions: No Known Allergies Allergy (Verified 10/02/18 17:28) Home Medications: sertraline, prazosin, and wellbutrin Past Medical History - Social History Smoking Status: Current Every Day Smoker Family History: Reviewed & Not Pertinent Patient has suicidal ideation: No Patient has homicidal ideation: No Renal/ Medical History: Reports: Hx Benign Prostatic Hyperplasia. Denies: Hx Peritoneal Dialysis Psychiatric Medical History: Reports: Hx Depression Past Surgical History: Reports: Hx Abdominal Surgery - hernia x2 Review of Systems - Review of Systems Notes: REVIEW OF SYSTEMS: CONSTITUTIONAL : Denies recent illness. Denies recent unintentional weight loss. Denies fever, chills, or sweats. EENT: Denies eye, ear, throat, or mouth pain, discharge, or symptoms. Denies nasal or sinus congestion. CARDIOVASCULAR: Denies chest pain. RESPIRATORY: Denies shortness of breath, cough, congestion, difficulty breathing, or wheezing. GASTROINTESTINAL: Denies nausea, vomiting, and diarrhea. Denies abdominal pain. Denies constipation. GENITOURINARY: Denies difficulty urinating, burning, blood in urine, urgency or frequency. MUSCULOSKELETAL: Denies neck and back pain. Denies joint pain or swelling. SKIN: Denies rash, itchiness, or lesions HEMATOLOGIC : Denies easy bruising or bleeding. LYMPHATIC: Denies swollen, painful, enlarged glands. NEUROLOGICAL: See HPI. PSYCHIATRIC: Denies stress, anxiety, alteration in sleep patterns, or depression. All other systems reviewed and negative. Physical Exam - Vital signs Vitals: Resp Pulse Ox 16 96 05/10/19 12:13 05/10/19 12:13 - Notes Notes: PHYSICAL EXAMINATION: GENERAL: Appears well, healthy, well-nourished, no acute distress. HEAD: Normocephalic, atraumatic. EYES: PERRL, conjunctiva normal, all extraocular movements intact, sclera nonicteric ENT: Dry mucous membranes. NECK: Supple, no noticeable swelling, redness, rash. Normal range of motion. LUNGS: Equal breath sounds bilaterally and clear to auscultation. No wheezes rales or rhonchi. CARDIOVASCULAR: S1-S2, regular rate, regular rhythm. Radial pulses 2+, normal. ABDOMEN: Normoactive bowel sounds. Soft, nontender, no guarding, no rebound tenderness, and no masses palpated. EXTREMITIES: Normal strength and range of motion, no pitting or edema. No cyanosis. NEUROLOGICAL: Moves all extremities upon command. Strength 5/5 in all extremities. PSYCH: Normal mood, normal affect. SKIN: Warm, dry. No rash, lesions, ulcerations noted. Normal skin turgor. Abrasion noted to bridge of nose, which patient states is old. Course - Re-evaluation Re-evalutation: 05/10/19 16:39 Hematology is unremarkable. Chemistries show a mild hyponatremia, which is actually improved from the other day. His AST and ALT are elevated, which is also better from the other day. Urinalysis shows a trace amount of ketones, consistent with mild dehydration. His urine tox screen and serum alcohol level is negative. We will give him a dose of Vistaril and will re-evaluate the patient. 05/12/19 17:45 Patient has now been in the emergency department for almost 6 hours with no seizure activity. Patient states that he feels better after receiving Vistaril. I will send him home with a prescription for Vistaril to help with alcohol withdrawals. He is in agreement with this plan. Follow-up precautions were giv en. Verbal discharge instructions were given to the patient. They verbalized understanding. They are stable for discharge. 05/12/19 18:15 I was informed by the primary nurse that the patient had left without his discharge instructions. He was called back to the emergency department. Hopefully the patient will show back up to get his prescription for his Vistaril. - Vital Signs Vital signs: Temp Pulse Resp BP Pulse Ox 98.9 F 22 H 125/79 97 05/10/19 12:50 05/10/19 17:01 05/10/19 17:00 05/10/19 17:01 - Laboratory Result Diagrams: 05/10/19 12:00 05/10/19 12:00 Laboratory results interpreted by me: 05/10/19 05/10/19 05/10/19 12:00 12:00 13:15 RBC 4.27 L MCV 99 H MCH 34.2 H Plt Count 104 L Jackson % (Auto) 19.7 H Sodium 135.9 L Chloride 95 L AST 181 H ALT 110 H Urine Protein 100 H Urine Ketones TRACE H Urine Urobilinogen 4.0 H - EKG Interpretation by Me Additional EKG results interpreted by me: 05/10/19 16:40 Sinus rhythm. Rate 80. MO 176; QRS 90; QT 360; QTc 416. No ST elevations or depressions noted. No acute change from previous EKG done on 05/07/2019. Discharge - Discharge Clinical Impression: Alcohol withdrawal seizure Qualifiers: Complication of substance-induced condition: uncomplicated Qualified Code(s): F10.230 - Alcohol dependence with withdrawal, uncomplicated Condition: Stable Disposition: HOME, SELF-CARE Additional Instructions: You were seen today in the emergency department after an alcohol withdrawal seizure. Please continue Vistaril to help with preventing seizures. You are also dehydrated. Please make sure you drink plenty of fluids. Please follow-up with your primary care doctor and mental health in regards to this visit. Please continue counseling, as this will help you from relapsing. Prescriptions: Hydroxyzine Pamoate [Vistaril 50 mg Capsule] 50 mg PO DAILY #30 capsule Referrals: [facility] [Provider Group] - Follow up in 3-5 days
[2019-05-10 18:00] VITALS: BP 125/79
== END 2019-05-10 18:10 | disposition home or self-care (01) ==
LOC: ER 12:00
DX: F10.230 Alcohol dependence with withdrawal, uncomplicated (principal); R56.9 Unspecified convulsions; F17.200 Nicotine dependence, unspecified, uncomplicated
CPT/HCPCS: 36415; 80053; 80307; 81001; 82962; 83735; 85025; 93005; 93010; 99285